=== PATIENT | female | born 1975 | race African-American/Black ===

== ENCOUNTER 2021-02-12 07:39 | Inpatient (IN) | payer BC, OTHER ==
[2021-01-31 15:34] VITALS: BMI 39.1
[2021-02-12] MEDS ORDERED: BUPIVACAINE HCL 100 ML ONE (11:07)
[2021-02-12] MEDS ORDERED: BUPIVACAINE HCL/PF 0.25% (2.5MG/ML) 10 ML VIAL ONE (11:08)
[2021-02-12] MEDS ORDERED: MIDAZOLAM HCL 2 MG/2 ML SINGLE DOSE VIAL ONE (11:22)
[2021-02-12] MEDS ORDERED: fentaNYL CITRATE 250 MCG/5 ML VIAL ONE (11:25)
[2021-02-12] MEDS ORDERED: PROPOFOL 20 ML ONE ×2 (11:26)
[2021-02-12] MEDS ORDERED: HYDROmorphone HCl 2 MG/ML VIAL IVPUSH PRN (12:22)
[2021-02-12] MEDS ORDERED: NEOSTIGMINE METHYLSULFATE 0.5 MG/1 ML - 10 ML MDV ONE (12:37)
[2021-02-12] MEDS ORDERED: BUPIVACAINE HCL/PF 0.25% (2.5MG/ML) 10 ML VIAL IJ ONE (12:40)
[2021-02-12] MEDS ORDERED: HYDROmorphone HCL/PF 1 MG/ML VIAL IVPB PRN (12:45)
[2021-02-12] MEDS: ACETAMINOPHEN 1000 MG/100 ML VIAL (NON FORMULARY) IVPB SCH ×2 (12:50→18:23)
[2021-02-12] MEDS ORDERED: FAMOTIDINE 20 MG/50 ML IVPB 20 MG/50 ML MG IVPB ONE (12:51)
[2021-02-12] MEDS: ONDANSETRON 4 MG/2 ML VIAL IVPUSH SCH ×3 (12:53→21:21)
[2021-02-12] MEDS: METOCLOPRAMIDE HCL INJECTION 10 MG/2 ML VIAL IVPUSH SCH ×2 (12:57→18:23)
[2021-02-12] MEDS ORDERED: FAMOTIDINE 20 MG PREMIXED IVPB IVPB ONE (13:05)
[2021-02-12 13:31] LABS: HEMATOCRIT 37.9 % (32.4-45.2); HEMOGLOBIN 12.3 GM/dl (10.7-15.3); MCHC 32.3 g/dl (32.0-36.0); MEAN CELL VOLUME 83.6 fl (80-96); MEAN PLT VOLUME 8.8 fl (7.5-11.1); PLATELET COUNT 338 10^3/uL (134-434); RBC 4.53 M/mm3 (3.60-5.2); RDW 13.3 % (11.6-15.6); WHITE BLOOD COUNT 17.9 K/mm3 (4.0-10.8)
[2021-02-12 13:39] LABS: ALBUMIN 3.6 g/dl (3.4-5.0); BILIRUBIN,TOTAL 0.7 mg/dl (0.2-1); CALCIUM 8.4 mg/dl (8.5-10); CREATININE 0.7 mg/dl (0.55-1.3); TOT PROT 6.1 g/dl (6.4-8.2)
[2021-02-12] MEDS: SODIUM CHLORIDE 1,000 ML IV SCH (18:25)
[2021-02-12] MEDS: ENOXAPARIN NA (PORCINE) 40 MG/0.4 ML DISP.SYRIN SQ SCH (21:21)
[2021-02-12] MEDS: FAMOTIDINE 20 MG/50 ML IVPB 20 MG/50 ML MG IVPB SCH (21:22)
[2021-02-13] MEDS: ACETAMINOPHEN 1000 MG/100 ML VIAL (NON FORMULARY) IVPB SCH ×2 (00:01→06:33)
[2021-02-13] MEDS: ONDANSETRON 4 MG/2 ML VIAL IVPUSH SCH ×4 (04:31→13:06)
[2021-02-13] MEDS: METOCLOPRAMIDE HCL INJECTION 10 MG/2 ML VIAL IVPUSH SCH ×3 (06:34→13:06)
[2021-02-13 08:38] LABS: HEMATOCRIT 36.5 % (32.4-45.2); HEMOGLOBIN 11.8 GM/dl (10.7-15.3); MCH 26.8 pg (25.7-33.7); MCHC 32.2 g/dl (32.0-36.0); MEAN CELL VOLUME 83.2 fl (80-96); MEAN PLT VOLUME 8.9 fl (7.5-11.1); PLATELET COUNT 317 10^3/uL (134-434); RBC 4.38 M/mm3 (3.60-5.2); WHITE BLOOD COUNT 11.9 K/mm3 (4.0-10.8)
[2021-02-13 08:39] LABS: ALBUMIN 3.4 g/dl (3.4-5.0); BILIRUBIN,TOTAL 0.5 mg/dl (0.2-1); CALCIUM 8.3 mg/dl (8.5-10); CREATININE 0.9 mg/dl (0.55-1.3)
[2021-02-13] MEDS: FAMOTIDINE 20 MG/50 ML IVPB 20 MG/50 ML MG IVPB SCH (09:12)
[2021-02-13] MEDS: ENOXAPARIN NA (PORCINE) 40 MG/0.4 ML DISP.SYRIN SQ SCH (09:13)
[2021-02-13] MEDS: SODIUM CHLORIDE 1,000 ML IV SCH (13:06)
[2021-02-13 14:15] VITALS: BP 125/80; PULSE 51; TEMP 98.1
== END 2021-02-13 16:02 | disposition home or self-care (01) | DRG 621 ==
LOC: FM/S 07:39
PROVIDERS: ADMIT Surgery; ATTEND Surgery
PROC: 0DJ04ZZ Inspection of Upper Intestinal Tract, Percutaneous Endoscopic Approach (ICD-10-PCS; 2021-02-12)
PROC: 0DB64Z3 Excision of Stomach, Percutaneous Endoscopic Approach, Vertical (ICD-10-PCS; principal; 2021-02-12 11:44)
PROC: 0FB24ZX Excision of Left Lobe Liver, Percutaneous Endoscopic Approach, Diagnostic (ICD-10-PCS; 2021-02-12 11:44)
DX: E66.01 Morbid (severe) obesity due to excess calories (principal); Z68.38 Body mass index [BMI] 38.0-38.9, adult; R16.0 Hepatomegaly, not elsewhere classified
CPT/HCPCS: 36415; 74240-TC-FY; 80053; 84703; 85027; 88305-TC; 94760; J0131